=== PATIENT | female | born 1990 | race Two or more races ===

== ENCOUNTER 2022-08-10 23:07 | Emergency (ER) | payer OTHER ==
[~2022-08-10] VITALS: Ht 167.6 cm; Wt 56.7 kg
[2022-08-11] VITALS: BP 117/65
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
--- NOTE | 2022-08-11 00:20 | NUR ---
SEEN BY DR PEARSON AT BEDSIDE
[2022-08-11] MEDS ORDERED: ONDA4TAB5 PO (00:46)
[2022-08-11] MEDS ORDERED: HYDR-4209 PO (00:46)
[2022-08-11] MEDS ORDERED: ONDANSETRON 4 MG TAB.RAPDIS ONE ×2 (00:49→00:53)
--- NOTE | 2022-08-11 00:55 | NUR ---
Patient discharged to home in stable condition. Written and verbal after care instructions given. Patient verbalizes understanding of instruction. Pt ambulatory with a steady gait
[2022-08-11] MEDS ORDERED: ONDANSETRON 4 MG TAB.RAPDIS SL ONE (01:00)
== END 2022-08-11 00:55 | disposition home or self-care (01) ==
LOC: ER 23:15
DX: S80.02XA Contusion of left knee, initial encounter (principal); Z79.899 Other long term (current) drug therapy; V89.2XXA Person injured in unspecified motor-vehicle accident, traffic, initial encounter; Y93.89 Activity, other specified; Y92.89 Other specified places as the place of occurrence of the external cause; Y99.8 Other external cause status
CPT/HCPCS: 99282; Q0162